=== PATIENT | male | born 1965 | race Caucasian/White ===

== ENCOUNTER 2021-10-11 12:05 | Day surgery (SDC) | payer OTHER ==
[2021-10-11] MEDS ORDERED: BUPIVACAINE 0.5% VIAL IJ ONE (12:06)
[2021-10-11] MEDS ORDERED: Depo-Medrol 40 MG/ML IM ONE (12:06)
[2021-10-11] MEDS ORDERED: DIPRIVAN 200 MG/20 ML IV ONE (15:00)
[2021-10-11] MEDS ORDERED: Lactated Ringers 1,000 ML IV ONE (15:10)
--- NOTE | 2021-10-11 16:19 | XRAY ---
Indication: Bilateral SI joint injection. Intraoperative fluoroscopy provided for 18 seconds. 4 digital spot images submitted for interpretation demonstrates posterior needle tip projecting over the inferior left and right SI joint. Correlate with intraoperative findings/report.
--- NOTE | 2021-10-11 16:23 | XRAY ---
18 seconds fluoroscopy time in surgery for injections of both SI joints.
== END 2021-10-11 15:27 | disposition home or self-care (01) ==
LOC: SDC-PAIN 12:05
PROVIDERS: ATTEND Psychiatry & Neurology Pain Medicine
DX: M46.1 Sacroiliitis, not elsewhere classified (principal); Z79.899 Other long term (current) drug therapy
CPT/HCPCS: 27096; 72202; 77002; G0260; J1030; J2704

== ENCOUNTER 2022-02-14 11:46 | Day surgery (SDC) | payer OTHER ==
[2022-02-14] MEDS ORDERED: Depo-Medrol 40 MG/ML IM ONE (11:47)
[2022-02-14] MEDS ORDERED: Sodium Chloride 0.9(Preservative Free) 10 ML IJ ONE (11:47)
[2022-02-14] MEDS ORDERED: DIPRIVAN 200 MG/20 ML IV ONE (14:14)
[2022-02-14] MEDS ORDERED: Lactated Ringers 1,000 ML IV ONE (14:35)
--- NOTE | 2022-02-14 15:10 | XRAY ---
Indication: Right L4-S1 transforaminal ISELA. Intraoperative fluoroscopy provided for 24 seconds. 4 digital spot images submitted for interpretation demonstrates posterior needle tips projecting over the expected right L4 and L5 nerve roots. Small amount of contrast injected for needle tip placement. Correlate with intraoperative findings/report.
--- NOTE | 2022-02-14 16:47 | XRAY ---
24 seconds of fluoroscopy was used in surgery for a right L4-S1 transforaminal ISELA.
== END 2022-02-14 14:38 | disposition home or self-care (01) ==
LOC: SDC-PAIN 11:46
PROVIDERS: ATTEND Psychiatry & Neurology Pain Medicine
DX: M54.16 Radiculopathy, lumbar region (principal); Z79.899 Other long term (current) drug therapy
CPT/HCPCS: 64483; 64484; 72100; 77003; J1030; J2704; Q9966

== ENCOUNTER 2022-06-04 14:08 | Emergency (ER) | payer OTHER, BC ==
[2022-06-04] MEDS ORDERED: Sodium Chloride 0.9% 1000 ML 1,000 ML IV STA (14:45)
[2022-06-04 14:48] VITALS: O2SAT 98
[2022-06-04 14:53] LABS: Absolute Neutrophil Ct (ANC) 5.09 x10^3/uL (1.4-6.9); Basophil (Absolute #) 0.03 x10^3/uL (0-0.4); Eosinophil % 2.1 % (0.00-5.0); Eosinophil (Absolute #) 0.16 x10^3/uL (0-0.5); Hematocrit 43.3 % (42-50); Hemoglobin 14.3 g/dL (12.5-18.0); Lymphocyte (Absolute #) 1.48 x10^3/uL (1.0-4.6); Lymphocytes % 19.7 % (24.0-44.0); Mean Cell Volume 92.1 fL (78-100); Mean Corpuscular Hemoglobin 30.4 pg (26-32); Mean Platelet Volume 9.3 fL (7.5-11.0); Monocyte (Absolute #) 0.72 x10^3/uL (0.0-1.3); Monocytes % 9.6 % (0.0-12.0); Neutrophil % 67.9 % (36.0-66.0); Platelet Count 251 x10^3/uL (150-450); Red Cell Distribution Width 12.5 % (11.5-14.0); White Blood Count 7.5 x10^3/uL (4.0-10.5)
[2022-06-04] MEDS ORDERED: Sodium Chloride 0.9% 1000 ML 1,000 ML ONE (14:54)
[2022-06-04 15:05] LABS: Appearance CLEAR (CLEAR); Bilirubin NEGATIVE (NEGATIVE); Dipstick done @ ? MAIN LAB; Glucose NEGATIVE (NEGATIVE); Ketones NEGATIVE (NEGATIVE); Nitrite NEGATIVE (NEGATIVE); Ph 6.5 (5-6); Protein,Urine Dip NEGATIVE (Negative); RBC NEGATIVE Ery/ul (0-5); Urobilinogen 1 mg/dL (0-1)
[2022-06-04 15:06] LABS: ALBUMIN 4.5 g/dL (3.5-5.0); ALKALINE PHOSPHATASE 73 U/L (38-126); AMYLASE 79 U/L (30-110); ANION GAP 8.1 MEQ/L (5-15); BLOOD UREA NITROGEN 14 mg/dL (9-20); CHLORIDE 105 mmol/L (98-107); Calcium 8.6 mg/dL (8.4-10.2); Carbon Dioxide 28 mmol/L (22-30); Creatinine 1 0.86 mg/dL (0.66-1.25); EST GLOMERULAR FILTRATION RATE > 60.0 ML/MIN; Glucose 99 mg/dL (74-106); LIPASE 111 U/L (23-300); Potassium 3.6 mmol/L (3.5-5.1); SGOT/AST 26 U/L (17-59); SGPT/ALT 23 U/L (0-50); SODIUM 137 mmol/L (137-145); Total Protein 7.6 g/dL (6.3-8.2)
[2022-06-04 15:08] LABS: WBC 0-2 /HPF (0-5)
[2022-06-04 15:09] LABS: Urine Cultured Indicated? NO
--- NOTE | 2022-06-04 15:24 | XRAY ---
Indication: Urinary retention and back pain one month. Multiple contiguous axial images obtained through the abdomen and pelvis without contrast. Comparison: None Lung bases clear. Heart not enlarged. Right lower back epidural stimulator device with lead produces beam artifact. Noncontrasted stomach and bowel loops appear nonobstructed with normal appendix. Mild scattered descending and sigmoid diverticulosis without diverticulitis. No free fluid/air. Right kidney demonstrates nonobstructing punctate calculus. Mildly enlarged prostate gland impresses on the base of the bladder. A few tiny hepatic calcified granulomas. Remaining liver, gallbladder, pancreas, spleen, adrenal glands, kidneys, ureters, bladder, and aorta are unremarkable for noncontrast exam. Osseous structures intact with minimal/mild degenerative changes throughout the visualized thoracolumbar spine and both hips. Impression: 1. Beam artifact from right lower back epidural stimulator device. 2. Nonobstructing right renal punctate calculus, enlarged prostate gland, colonic diverticulosis, degenerative spondylosis, and old granulomatous disease. 3. Remaining CT abdomen/pelvis without contrast exam is negative.
[2022-06-04 15:35] VITALS: BP 125/78
--- NOTE | 2022-06-04 16:09 | ERPHSYRPT ---
- History of Present Illness Time Seen by Provider: 06/04/22 14:40 Source: patient Exam Limitations: no limitations Patient Subjective Stated Complaint: left lower abd pain Triage Nursing Assessment: Presentss aaox3, walked in, c/o left lower abd pain rad to left flank for past couple weeks, c/o urinary hesitancy, walked in. no fever, no chills, no sweats, startes h/o enlarged protate Physician History: Patient is a 57-year-old white male who presents with a complaint of abdominal pain especially in the left flank and lower abdomen he has a history of prostatitis he has noticed some urinary hesitancy denies any nausea vomiting diarrhea he is followed at the OR and has been referred for a TURP. Timing/Duration: week(s) Activites at Onset: none Onset Location: [facility] Pain Radiation: left flank Severity of Pain-Max: moderate Severity of Pain-Current: none Modifying Factors: Improves With: nothing Associated Symptoms: other (Complains of urinary hesitancy occasionally frequency) Sexual intercourse history: non-contributory Allergies/Adverse Reactions: tramadol Allergy (Verified 08/30/16 13:17) Home Medications: Albuterol Sulfate [Proventil Hfa] 2 puffs IH UD 08/30/16 [History] Ibuprofen 800 mg PO TID 08/30/16 [History] Omeprazole 20 MG [Prilosec 20 mg] 20 mg PO DAILY 08/30/16 [History] Oxybutynin Chloride [Ditropan Xl] 5 mg PO TID 08/30/16 [History] Tamsulosin HCl 0.4 mg [Flomax 0.4 MG] 2 tab PO HS 08/30/16 [History] Hydrocodone/APAP 10/325 mg [[place] 10/325 MG Tablet] 1 tab PO Q6H PRN PRN 10/09/16 [History] Testosterone Cypionate [Depo-Testosterone] 200 mg IM .[id number] 11/06/16 [History] Cholecalciferol (Vitamin D3) [Vitamin D] 400 unit PO DAILY 10/29/17 [History] Meloxicam [Mobic] 15 mg PO DAILY 10/29/17 [History] [place]-3 Fatty Acids/Fish Oil [Fish Oil 1,000 mg Capsule] 1 each PO BID 10/29/17 [History] Vitamin E (Dl,Tocopheryl Acet) [Vitamin E] 1,000 unit PO DAILY 10/29/17 [History] Hx Influenza Vaccination/Date Given: No Immunizations Up to Date: Yes Travel Risk - International Travel Have you traveled outside of the country in past 3 weeks: No - Coronavirus Screening Are you exhibiting any of the following symptoms?: No Close contact with a COVID-19 positive Pt in past 14-21 Days: No - Vaccine Status Have you recieved a Covid-19 vaccination: Yes Inpatient Pharmacist: [employer] - Vaccination Dates Date of 2cond Vaccination (if applicable): 2020 - Past Medical History Pertinent Past Medical History: Yes Neurological History: No Pertinent History ENT History: No Pertinent History Cardiac History: Hypertension Respiratory History: No Pertinent History Endocrine Medical History: No Pertinent History Musculoskeletal History: Other GI Medical History: Other History: No Pertinent History Psycho-Social History: No Pertinent History Male Reproductive Disorders: Prostate Problems - Past Surgical History Past Surgical History: Yes (bilateral knee replacements) Neuro Surgical History: No Pertinent History Cardiac: No Pertinent History Respiratory: No Pertinent History Gastrointestinal: No Pertinent History Genitourinary: No Pertinent History Musculoskeletal: No Pertinent History Male Surgical History: No Pertinent History - Social History Smoking Status: Former smoker Exposure to second hand smoke: No Drug Use: marijuana Patient Lives Alone: No - Review of Systems Constitutional: No Fever, No Chills Eyes: No Symptoms Ears, Nose, & Throat: No Symptoms Respiratory: No Cough, No Dyspnea Cardiac: No Chest Pain, No Edema, No Syncope Abdominal/Gastrointestinal: No Abdominal Pain, No Nausea, No Vomiting, No Diarrhea Genitourinary Symptoms: Frequency, Hesitancy, Flank Pain, No Dysuria Musculoskeletal: No Back Pain, No Neck Pain Skin: No Rash Neurological: No Dizziness, No Focal Weakness, No Sensory Changes Psychological: No Symptoms Endocrine: No Symptoms All Other Systems: Reviewed and Negative - Nursing Vital Signs Nursing Vital Signs: Initial Vital Signs Temperature 98.8 F 06/04/22 14:33 Pulse Rate 81 06/04/22 14:33 Respiratory Rate 18 06/04/22 14:33 Blood Pressure 112/74 06/04/22 14:33 O2 Sat by Pulse Oximetry 98 06/04/22 14:33 Pain Scale Pain Intensity 7 - Physical Exam General Appearance: no apparent distress, alert Eye Exam: PERRL/EOMI Ears, Nose, Throat Exam: pharynx normal, moist mucous membranes Neck Exam: normal inspection, supple Respiratory Exam: normal breath sounds, lungs clear Cardiovascular Exam: regular rate/rhythm, No edema Gastrointestinal/Abdomen Exam: normal bowel sounds, tenderness Rectal Exam: deferred Male Genital Exam: normal genitalia Back Exam: normal inspection, No CVA tenderness Extremity Exam: normal inspection, normal range of motion, No pedal edema Neurologic Exam: alert, oriented x 3, cooperative, sensation nml, No motor deficits Skin Exam: normal color, warm, dry, No rash SpO2: 98 - Course Nursing assessment & vital signs reviewed: Yes - CT Exams Abdomen/Pelvis CT Interpretation: Other (Enlarged prostate) Ordered Tests: Active Orders 24 hr Category Date Time Status IV Insertion STAT Care 06/04/22 14:45 Active ABDOMEN AND PELVIS W/0 CONTRAS [CT] Stat Exams 06/04/22 15:08 Completed AMYLASE Stat Lab 06/04/22 14:45 Completed CBC W DIFF Stat Lab 06/04/22 14:45 Completed CMP Stat Lab 06/04/22 14:45 Completed LIPASE Stat Lab 06/04/22 14:45 Completed Lactic Acid Stat Lab 06/04/22 15:07 Completed UA W/RFX CULTURE Stat Lab 06/04/22 14:45 Completed Medication Summary Discontinued Medications Generic Name Dose Route Start Last Admin Trade Name Harinder PRN Reason Stop Dose Admin Sodium Chloride 1,000 mls @ 999 mls/hr 06/04/22 14:45 06/04/22 14:55 Sodium Chloride 0.9% 1000 Ml IV 06/04/22 15:45 999 mls/hr .Q1H1M STA Administration Sodium Chloride Confirm 06/04/22 14:54 Sodium Chloride 0.9% 1000 Ml Administered 06/04/22 14:55 Dose 1,000 mls @ ud .ROUTE .STK-MED ONE Lab/Rad Data: Laboratory Result Diagrams 06/04/22 14:45 06/04/22 14:45 Laboratory Results 06/04/22 06/04/22 06/04/22 Range/Units 15:07 14:45 14:45 WBC (4.0-10.5) x10^3/uL RBC (4.1-5.6) x10^6/uL Hgb (12.5-18.0) g/dL Hct (42-50) % MCV (78-100) fL MCH (26-32) pg MCHC (32-36) g/dL RDW (11.5-14.0) % Plt Count (150-450) x10^3/uL MPV (7.5-11.0) fL Gran % (36.0-66.0) % Immature Gran % (Auto) (0.00-0.4) % Nucleat RBC Rel Count (0.00-0.1) % Eos # (Auto) (0-0.5) x10^3/uL Immature Gran # (Auto) (0.00-0.03) x10^3u/L Absolute Lymphs (auto) (1.0-4.6) x10^3/uL Absolute Monos (auto) (0.0-1.3) x10^3/uL Absolute Nucleated RBC (0.00-0.01) x10^3u/L Lymphocytes % (24.0-44.0) % Monocytes % (0.0-12.0) % Eosinophils % (0.00-5.0) % Basophils % (0.0-0.4) % Absolute Granulocytes (1.4-6.9) x10^3/uL Basophils # (0-0.4) x10^3/uL Sodium 137 (137-145) mmol/L Potassium 3.6 (3.5-5.1) mmol/L Chloride 105 (98-107) mmol/L Carbon Dioxide 28 (22-30) mmol/L Anion Gap 8.1 (5-15) MEQ/L BUN 14 (9-20) mg/dL Creatinine 0.86 (0.66-1.25) mg/dL Estimated GFR > 60.0 ML/MIN Glucose 99 (74-106) mg/dL Lactic Acid 0.9 (0.4-2.0) Calcium 8.6 (8.4-10.2) mg/dL Total Bilirubin 0.80 (0.2-1.3) mg/dL AST 26 (17-59) U/L ALT 23 (0-50) U/L Alkaline Phosphatase 73 (38-126) U/L Serum Total Protein 7.6 (6.3-8.2) g/dL Albumin 4.5 (3.5-5.0) g/dL Amylase 79 (30-110) U/L Lipase 111 (23-300) U/L Urinalys Dipstick Clnc MAIN LAB Urine Color YELLOW (YELLOW) Urine Appearance CLEAR (CLEAR) Urine pH 6.5 (5-6) Ur Specific [place] 1.020 (1.005-1.025) POC Urine Protein Conf NEGATIVE (Negative) Urine Ketones NEGATIVE (NEGATIVE) Urine Nitrite NEGATIVE (NEGATIVE) Urine Bilirubin NEGATIVE (NEGATIVE) Urine Urobilinogen 1 (0-1) mg/dL Urine Leukocytes NEGATIVE (NEGATIVE) Urine WBC (Auto) 0-2 (0-5) /HPF Urine RBC (Auto) NONE (0-2) /HPF U Epithel Cells (Auto) Not Reportable Urine Bacteria (Auto) Not Reportable Urine RBC NEGATIVE (0-5) Carlo/ul Ur Culture Indicated? NO Urine Glucose NEGATIVE (NEGATIVE) mg/dL 06/04/22 Range/Units 14:45 WBC 7.5 (4.0-10.5) x10^3/uL RBC 4.70 (4.1-5.6) x10^6/uL Hgb 14.3 (12.5-18.0) g/dL Hct 43.3 (42-50) % MCV 92.1 (78-100) fL MCH 30.4 (26-32) pg MCHC 33.0 (32-36) g/dL RDW 12.5 (11.5-14.0) % Plt Count 251 (150-450) x10^3/uL MPV 9.3 (7.5-11.0) fL Gran % 67.9 H (36.0-66.0) % Immature Gran % (Auto) 0.3 (0.00-0.4) % Nucleat RBC Rel Count 0.0 (0.00-0.1) % Eos # (Auto) 0.16 (0-0.5) x10^3/uL Immature Gran # (Auto) 0.02 (0.00-0.03) x10^3u/L Absolute Lymphs (auto) 1.48 (1.0-4.6) x10^3/uL Absolute Monos (auto) 0.72 (0.0-1.3) x10^3/uL Absolute Nucleated RBC 0.00 (0.00-0.01) x10^3u/L Lymphocytes % 19.7 L (24.0-44.0) % Monocytes % 9.6 (0.0-12.0) % Eosinophils % 2.1 (0.00-5.0) % Basophils % 0.4 (0.0-0.4) % Absolute Granulocytes 5.09 (1.4-6.9) x10^3/uL Basophils # 0.03 (0-0.4) x10^3/uL Sodium (137-145) mmol/L Potassium (3.5-5.1) mmol/L Chloride (98-107) mmol/L Carbon Dioxide (22-30) mmol/L Anion Gap (5-15) MEQ/L BUN (9-20) mg/dL Creatinine (0.66-1.25) mg/dL Estimated GFR ML/MIN Glucose (74-106) mg/dL Lactic Acid (0.4-2.0) Calcium (8.4-10.2) mg/dL Total Bilirubin (0.2-1.3) mg/dL AST (17-59) U/L ALT (0-50) U/L Alkaline Phosphatase (38-126) U/L Serum Total Protein (6.3-8.2) g/dL Albumin (3.5-5.0) g/dL Amylase (30-110) U/L Lipase (23-300) U/L Urinalys Dipstick Clnc Urine Color (YELLOW) Urine Appearance (CLEAR) Urine pH (5-6) Ur Specific [place] (1.005-1.025) POC Urine Protein Conf (Negative) Urine Ketones (NEGATIVE) Urine Nitrite (NEGATIVE) Urine Bilirubin (NEGATIVE) Urine Urobilinogen (0-1) mg/dL Urine Leukocytes (NEGATIVE) Urine WBC (Auto) (0-5) /HPF Urine RBC (Auto) (0-2) /HPF U Epithel Cells (Auto) Urine Bacteria (Auto) Urine RBC (0-5) Carlo/ul Ur Culture Indicated? Urine Glucose (NEGATIVE) mg/dL - Progress Progress: unchanged - Departure Departure Disposition: Home Clinical Impression: Prostatitis Condition: Stable Critical Care Time: No Referrals: MELANIE NEWSOME Jr., MD [Primary Care Provider] - Follow up/PCP as directed Instructions: Prostatitis (DC) Prescriptions: Ciprofloxacin [Cipro 500 MG] 500 mg PO BID #28 tablet Ciprofloxacin [Cipro 500 MG] 500 mg PO BID #28 tablet
[2022-06-04 16:22] VITALS: PULSE 84
== END 2022-06-04 16:32 | disposition home or self-care (01) ==
LOC: ED 14:08
DX: N41.9 Inflammatory disease of prostate, unspecified (principal); R10.32 Left lower quadrant pain; R39.11 Hesitancy of micturition; I10 Essential (primary) hypertension; Z79.899 Other long term (current) drug therapy
CPT/HCPCS: 36000; 36415; 74176; 80053; 81015; 82150; 83605; 83690; 85025; 96360; 99284

== ENCOUNTER 2023-09-04 07:58 | Day surgery (SDC) | payer OTHER ==
[2023-09-04] MEDS ORDERED: Depo-Medrol 40 MG/ML IM ONE (07:59)
[2023-09-04] MEDS ORDERED: BUPIVACAINE 0.5% VIAL IJ ONE (07:59)
[2023-09-04] MEDS ORDERED: Lactated Ringers 1,000 ML IV ONE (10:44)
[2023-09-04] MEDS ORDERED: DIPRIVAN 200 MG/20 ML IV ONE (11:04)
--- NOTE | 2023-09-04 12:29 | XRAY ---
Indication: Right hip and right greater trochanter bursa injection. Intraoperative fluoroscopy provided for 15 seconds. 2 digital spot images submitted for interpretation demonstrates needle tip projecting lateral to right femur neck. Second needle tip lateral to greater trochanter. Small amount of contrast injected for both needle tip placement. Correlate with intraoperative findings/report.
--- NOTE | 2023-09-04 12:32 | XRAY ---
15 seconds of fluoroscopy was used in surgery for a right intra-articular hip and right greater trochanteric bursa injection.
== END 2023-09-04 11:28 | disposition home or self-care (01) ==
LOC: SDC-PAIN 07:58
PROVIDERS: ATTEND Psychiatry & Neurology Pain Medicine
DX: M16.11 Unilateral primary osteoarthritis, right hip (principal); Z79.899 Other long term (current) drug therapy
CPT/HCPCS: 20610; 73502; 77002; 82947; J1030; J2704

== ENCOUNTER 2024-02-19 08:59 | Day surgery (SDC) | payer OTHER ==
[2024-02-19] MEDS ORDERED: Depo-Medrol 40 MG/ML IM ONE (09:00)
[2024-02-19] MEDS ORDERED: BUPIVACAINE 0.5% VIAL IJ ONE (09:00)
[2024-02-19] MEDS ORDERED: XYLOCAINE-MPF 1% 5ML SDV IJ ONE (09:00)
[2024-02-19] MEDS ORDERED: DIPRIVAN 200 MG/20 ML IV ONE (11:00)
--- NOTE | 2024-02-19 11:54 | XRAY ---
Indication: Right L4-S1 RFA. Intraoperative fluoroscopy provided for 17 seconds. 5 digital spot image submitted for interpretation demonstrates posterior needle tips projecting over the expected right L4-S1 nerve roots. Correlate with intraoperative findings/report.
[2024-02-19] MEDS ORDERED: Lactated Ringers 1,000 ML IV ONE (12:13)
--- NOTE | 2024-02-19 12:54 | XRAY ---
17 seconds of fluoroscopy was used in surgery for a right L4-S1 RFA.
== END 2024-02-19 11:30 | disposition home or self-care (01) ==
LOC: SDC-PAIN 08:59
PROVIDERS: ATTEND Psychiatry & Neurology Pain Medicine
DX: M47.816 Spondylosis without myelopathy or radiculopathy, lumbar region (principal); E11.9 Type 2 diabetes mellitus without complications
CPT/HCPCS: 64635; 64636; 72100; 77002; 82947; J1010; J2704

== ENCOUNTER 2024-02-26 07:26 | Day surgery (SDC) | payer OTHER ==
[2024-02-26] MEDS ORDERED: LIDOCAINE HCL 1% 50 MG/5 ML VL PF IJ ONE (07:27)
[2024-02-26] MEDS ORDERED: Depo-Medrol 40 MG/ML IM ONE (07:27)
[2024-02-26] MEDS ORDERED: BUPIVACAINE 0.5% VIAL IJ ONE (07:27)
[2024-02-26] MEDS ORDERED: Lactated Ringers 1,000 ML IV ONE (08:51)
[2024-02-26] MEDS ORDERED: DIPRIVAN 200 MG/20 ML IV ONE (08:58)
--- NOTE | 2024-02-26 10:39 | XRAY ---
Indication: Left L4-S1 RFA. Intraoperative fluoroscopy provided for 17 seconds. 3 digital spot image submitted for interpretation demonstrates posterior needle tips projecting over the expected left L4-S1 nerve roots. Correlate with intraoperative findings/report.
--- NOTE | 2024-02-26 13:24 | XRAY ---
17 seconds of fluoroscopy was used in surgery for a left L4-S1 RFA.
== END 2024-02-26 09:28 | disposition home or self-care (01) ==
LOC: SDC-PAIN 07:26
PROVIDERS: ATTEND Psychiatry & Neurology Pain Medicine
DX: M47.816 Spondylosis without myelopathy or radiculopathy, lumbar region (principal); E11.9 Type 2 diabetes mellitus without complications
CPT/HCPCS: 64635; 64636; 72100; 77002; 82947; J1010; J2001; J2704

== ENCOUNTER 2024-06-10 15:35 | Day surgery (SDC) | payer OTHER ==
[2024-06-10] MEDS ORDERED: LIDOCAINE HCL 1% AMPUL 5 ML IJ ONE (15:36)
[2024-06-10] MEDS ORDERED: BUPIVACAINE 0.5% VIAL IJ ONE (15:36)
[2024-06-10] MEDS ORDERED: Depo-Medrol 40 MG/ML IM ONE (15:36)
--- NOTE | 2024-06-10 18:53 | XRAY ---
Indication: Left ankle injection. Intraoperative fluoroscopy provided for 14 seconds. Single digital spot images submitted for interpretation demonstrates needle tip projecting over the left talotibial joint. Small amount of contrast injected for needle tip placement. Correlate with intraoperative findings/report.
--- NOTE | 2024-06-11 10:30 | XRAY ---
14 seconds of fluoroscopy was used in surgery for a left intra-articular ankle injection.
== END 2024-06-10 17:30 | disposition home or self-care (01) ==
LOC: SDC-PAIN 15:35
PROVIDERS: ATTEND Psychiatry & Neurology Pain Medicine
DX: M19.072 Primary osteoarthritis, left ankle and foot (principal); E11.9 Type 2 diabetes mellitus without complications
CPT/HCPCS: 20610; 73600; 77002; 82947; Q9966

== ENCOUNTER 2024-09-21 08:52 | Day surgery (SDC) | payer OTHER ==
--- NOTE | 2024-09-21 08:31 | HP ---
HISTORY OF PRESENT ILLNESS: A 59-year-old, last colonoscopy more than 10 years ago. Needs a screening colonoscopy as requested by the [place]. No bloody stools. No change in bowel habits. No new pain. Family history negative for colon cancer. PAST MEDICAL HISTORY: Hypertension, hyperlipidemia, type 2 diabetes, arthritis in his back. He is hard of hearing. He has dentures. PAST SURGICAL HISTORY: Had nasal surgery, tonsillectomy, adenoidectomy, bilateral knee replacements and colonoscopy in the past. FAMILY HISTORY: Negative for colon cancer. SOCIAL HISTORY: History of smoking. Occasional alcohol use. MEDICATIONS: Simvastatin, tamsulosin, finasteride, omeprazole, lisinopril, metformin, diclofenac. ALLERGIES: Tramadol. REVIEW OF SYSTEMS: Twelve systems reviewed. No chest pain or palpitations. Other systems negative or noncontributory as above and per preadmission questionnaire. PHYSICAL EXAMINATION: GENERAL: Height 5 feet 6 inches. BMI 36. HEENT: Sclerae nonicteric. NECK: No JVD. CHEST: Equal excursion, nonlabored breathing. CARDIOVASCULAR: Regular rate and rhythm. ABDOMEN: Soft. EXTREMITIES: No cyanosis or edema. NEUROLOGIC: Alert and oriented, moving all extremities symmetrically. PSYCHIATRIC: Appropriate mood and affect. SKIN: Dry. RECTAL: Deferred until endoscopy exam. IMPRESSION: Patient is in need of followup screening colonoscopy as [facility]. Shown the risk sheet, explained the procedure in detail including bleeding and infection; risk of bowel injury or perforation, risked of missed or nondiagnosis or incomplete exam possibly requiring barium enema or other surgical procedures, general risks of anesthesia or sedation, risk of bowel prep, but not limited to. He understands. Will proceed to outpatient following screening colonoscopy under MAC anesthesia. Otherwise, continue medications for his hypertension, hyperlipidemia, arthritis and diabetes.
[2024-09-21] MEDS ORDERED: Lactated Ringers 1,000 ML IV ONE (09:09)
[2024-09-21 09:23] VITALS: RESP 18
[2024-09-21] MEDS: Lactated Ringers 1,000 ML IV SCH (09:27)
[2024-09-21 09:47] LABS: ANION GAP 10.9 MEQ/L (5-15); Calcium 9.1 mg/dL (8.4-10.2); Creatinine 1 0.87 mg/dL (0.66-1.25); EST GLOMERULAR FILTRATION RATE 98.2 ML/MIN
[2024-09-21] MEDS ORDERED: propofoL IV ONE (11:18)
[2024-09-21] MEDS ORDERED: Versed 2 MG/2 ML Injection ONE (11:18)
[2024-09-21 12:22] VITALS: BP 150/90; PULSE 65; TEMP 97.7; O2SAT 96
--- NOTE | 2024-09-22 09:24 | OP ---
SURGERY DATE/TIME: 09/21/2024 [id number] PREOPERATIVE DIAGNOSIS: Need for screening colonoscopy. POSTOPERATIVE DIAGNOSES: 1) Colon polyps. 2) Diverticulosis. 3) Fair bowel prep. 4) Withdrawal time approximately 9 minutes. 5) ASA class 2. PROCEDURES: 1) Colonoscopy to cecum. 2) Hot snare polypectomy 5 mm transverse colon polyp. 3) Hot biopsy piecemeal polypectomy of sigmoid colon polyp (approximately 3 mm). 4) Hot biopsy polypectomy of 4 small early polyps versus hyperplastic lesions rectum x4. SURGEON: Alexis Sanchez MD ANESTHESIA: MAC. ESTIMATED BLOOD LOSS: Minimal. INDICATIONS: Consent obtained. DESCRIPTION OF PROCEDURE AND FINDINGS: Patient was taken to endoscopy room. MAC anesthesia induced. After official time-out, no disagreement in planned procedure. Digital rectal exam did not reveal any rectal masses. Videocolonoscope was passed up through slightly tortuous sigmoid, descending, transverse, and ascending colon around to the cecum. Appendiceal orifice and valve well visualized, photo documented. Prep overall was fair. A little bit of liquidy semisolid stool throughout the colon just slightly limiting exam for small lesions. This was suctioned, irrigated as clear as possible. Scope was carefully withdrawn over the next 9 minutes. A 5 mm polyp in the transverse colon was removed with hot snare polypectomy. Good hemostasis noted. Specimen was retrieved. There was a 3 mm polyp in the sigmoid colon that was removed with hot biopsy piecemeal polypectomy. Good hemostasis noted. He did have a few diverticula in the left colon, small diverticula in the left colon. Otherwise, scope pulled back to the rectum. There were 4 small 2 mm early polyps versus hyperplastic lesions removed with hot biopsy polypectomy. Good hemostasis noted. Scope was withdrawn. Findings discussed with family in the waiting area.
== END 2024-09-21 12:25 | disposition home or self-care (01) ==
LOC: SDC 08:52
PROVIDERS: ATTEND Surgery
DX: Z12.11 Encounter for screening for malignant neoplasm of colon (principal); D12.7 Benign neoplasm of rectosigmoid junction; D12.5 Benign neoplasm of sigmoid colon; D12.3 Benign neoplasm of transverse colon; I10 Essential (primary) hypertension; E11.9 Type 2 diabetes mellitus without complications; K57.30 Diverticulosis of large intestine without perforation or abscess without bleeding
CPT/HCPCS: 36415; 80048; 93005; J2250; J2704

== ENCOUNTER 2024-12-30 09:01 | Day surgery (SDC) | payer OTHER ==
[2024-12-30] MEDS ORDERED: Depo-Medrol 40 MG/ML IM ONE (09:02)
[2024-12-30] MEDS ORDERED: BUPIVACAINE 0.5% VIAL IJ ONE (09:02)
[2024-12-30] MEDS ORDERED: LIDOCAINE HCL 1% AMPUL 5 ML IJ ONE (09:02)
[2024-12-30] MEDS ORDERED: propofoL IV ONE (10:38)
[2024-12-30] MEDS ORDERED: Lactated Ringers 1,000 ML IV ONE ×2 (10:57→12:16)
--- NOTE | 2024-12-30 12:33 | XRAY ---
Indication: Right L4-S1 RFA. Intraoperative fluoroscopy provided for 29 seconds. 4 digital spot images submitted for interpretation demonstrates posterior needle tips projecting over expected right L4-S1 nerve roots. Correlate with intraoperative findings/report. Incidental incompletely visualized right epidural generator.
--- NOTE | 2024-12-30 13:07 | XRAY ---
29 seconds of fluoroscopy was used in surgery for a right L4-S1 RFA.
== END 2024-12-30 11:09 | disposition home or self-care (01) ==
LOC: SDC-PAIN 09:01
PROVIDERS: ATTEND Psychiatry & Neurology Pain Medicine
DX: M47.817 Spondylosis without myelopathy or radiculopathy, lumbosacral region (principal); E11.9 Type 2 diabetes mellitus without complications
CPT/HCPCS: 64635; 64636; 72100; 82947; J2704

== ENCOUNTER 2025-01-06 08:45 | Day surgery (SDC) | payer OTHER ==
[2025-01-06] MEDS ORDERED: BUPIVACAINE 0.5% VIAL IJ ONE (08:46)
[2025-01-06] MEDS ORDERED: methylPREDNISolone acetate IM ONE (08:46)
[2025-01-06] MEDS ORDERED: LIDOCAINE HCL 1% 50 MG/5 ML VL IJ ONE (08:46)
[2025-01-06] MEDS ORDERED: propofoL IV ONE (10:34)
[2025-01-06] MEDS ORDERED: Lactated Ringers 1,000 ML IV ONE (11:12)
--- NOTE | 2025-01-06 12:23 | XRAY ---
Indication: Left L4-S1 RFA. Intraoperative fluoroscopy provided for 15 seconds. 4 digital spot image submitted for interpretation demonstrates posterior needle tips projecting over expected left L4-S1 nerve roots. Correlate with intraoperative findings/report.
--- NOTE | 2025-01-06 12:27 | XRAY ---
15 seconds of fluoroscopy was used in surgery for a left L4-S1 RFA.
== END 2025-01-06 11:07 | disposition home or self-care (01) ==
LOC: SDC-PAIN 08:45
PROVIDERS: ATTEND Psychiatry & Neurology Pain Medicine
DX: M47.817 Spondylosis without myelopathy or radiculopathy, lumbosacral region (principal); E11.9 Type 2 diabetes mellitus without complications
CPT/HCPCS: 64635; 64636; 72100; 82947; J1010; J2704